=== PATIENT | female | born 1955 | race Caucasian/White ===

== ENCOUNTER 2018-09-02 18:14 | Observation (INO) | payer MEDICARE ==
[~2018-09-02] VITALS: Ht 157.5 cm; Wt 60.0 kg
[2018-09-02] MEDS ORDERED: CORDARONE200 MG/TAB PO (18:52)
[2018-09-02] MEDS ORDERED: LASIX 20MG TABL20 MG (18:53)
[2018-09-02] MEDS ORDERED: COREG 25MG25 MG/TAB PO (18:53)
[2018-09-02] MEDS ORDERED: PAXIL 10MG10 MG PO (18:53)
[2018-09-02] MEDS ORDERED: AMBIEN 10MG10 MG PO (18:54)
[2018-09-02] MEDS ORDERED: LIPITOR 40MG TA40 MG PO (18:54)
[2018-09-02 19:17] LABS: INR 1.2 (0.8-3.0); PROTHROMBIN TIME 13.8 SECONDS (9.7-12.8)
[2018-09-02 19:19] VITALS: BP 138/83; PULSE 80; TEMP 98.2
[2018-09-02 19:25] LABS: ALANINE AMINOTRANSFERASE 64 U/L (9-52); ALBUMIN 3.6 gm/dL (3.5-5.0); ALKALINE PHOSPHATASE 103 U/L (50-136); ANION GAP 4 mmol/L (7-16); AST,SGOT 62 U/L (15-37); BILIRUBIN,TOTAL 0.5 mg/dL (0.0-1.0); BLOOD UREA NITROGEN 14 mg/dL (7-17); CARBON DIOXIDE 29 mmol/L (22-30); CHLORIDE 107 mmol/L (98-107); CREATININE, serum 0.78 mg/dL (0.52-1.25); GLUCOSE 94 mg/dL (74-106); MAGNESIUM 1.8 mg/dL (1.6-2.3); PHOSPHOROUS 2.4 mg/dL (2.5-4.5); POTASSIUM 3.7 mmol/L (3.4-5.0); SODIUM 139 mmol/L (137-145); TOTAL PROTEIN 6.6 gm/dL (6.4-8.2)
[2018-09-02 19:26] LABS: BASO # 0.1 (0.0-0.2); BASO % 0.8 % (0.0-2.0); EOS # 0.1 (0.0-0.7); GRAN # 5.5 (1.4-6.5); GRAN % 63.1 % (42.2-75.2); HEMOGLOBIN 10.4 g/dl (12.5-16.0); LYMPH # 2.4 (1.2-3.4); LYMPH % 27.4 % (20.0-51.0); MEAN CELL VOLUME 75 fl (80.0-100.0); MEAN CORPUSCULAR HEMOGLOBIN 23 pg (27.0-31.0); MEAN CORPUSCULAR HGB CONC 31 g/dl (33.0-37.0); MEAN PLATELET VOLUME 9.2 fl (7.4-10.4); MONO # 0.7 (0.1-0.6); MONO % 7.5 % (1.7-9.3); PLATELET COUNT 513 K/mm3 (130-400); REDCELL DISTRIBUTION WIDTH-CV 21.2 % (11.5-14.5)
[2018-09-02 19:28] LABS: HEMATOCRIT 33.8 % (37.0-47.0)
[2018-09-02 19:40] LABS: TROPONIN-I < 0.012 ng/mL (0.000-0.034)
[2018-09-02 19:52] LABS: IRON,SERUM < 10 ug/dL (35-150)
[2018-09-02 20:01] LABS: TOTAL IRON BINDING CAPACITY 478 ug/dL (265-497)
[2018-09-02 20:28] LABS: FERRITIN 18 ng/mL (11-264)
[2018-09-03 00:23] VITALS: BP 133/68; PULSE 70; TEMP 98.2
[2018-09-03 06:15] LABS: BASO # 0.1 (0.0-0.2); BASO % 1.2 % (0.0-2.0); EOS # 0.2 (0.0-0.7); EOS % 2.2 % (0-4.0); GRAN # 3.6 (1.4-6.5); GRAN % 51.4 % (42.2-75.2); LYMPH # 2.5 (1.2-3.4); LYMPH % 35.4 % (20.0-51.0); MEAN CELL VOLUME 78 fl (80.0-100.0); MEAN CORPUSCULAR HGB CONC 30 g/dl (33.0-37.0); MEAN PLATELET VOLUME 9.3 fl (7.4-10.4); MONO # 0.7 (0.1-0.6); MONO % 9.7 % (1.7-9.3); PLATELET COUNT 461 K/mm3 (130-400)
[2018-09-03 06:17] LABS: HEMOGLOBIN 9.2 g/dl (12.5-16.0); MEAN CORPUSCULAR HEMOGLOBIN 23 pg (27.0-31.0)
[2018-09-03 06:29] LABS: CALCIUM 7.7 mg/dL (8.4-10.2); CHOLESTEROL RISK RATIO 4.2; CREATININE, serum 0.68 mg/dL (0.52-1.25); PHOSPHOROUS 3.2 mg/dL (2.5-4.5); POTASSIUM 3.6 mmol/L (3.4-5.0)
[2018-09-03 07:41] VITALS: BP 135/76; PULSE 73; TEMP 98.2
[2018-09-03 11:17] VITALS: BP 143/88; PULSE 65; TEMP 97.6
[2018-09-03] MEDS ORDERED: ASPIRIN E.C. 8181 MG PO (12:27)
[2018-09-03] MEDS ORDERED: COZAAR 25MG25 MG/TAB PO (12:27)
[2018-09-03] MEDS ORDERED: LASIX 20MG TABL20 MG PO (12:28)
[2018-09-03] MEDS ORDERED: K-DUR 10 MEQ T10 MEQ PO (12:37)
== END 2018-09-03 16:02 | disposition home or self-care (01) ==
LOC: MEDICAL 18:14
PROVIDERS: Nurse Practitioner Family
DX: I11.0 Hypertensive heart disease with heart failure (principal); I50.21 Acute systolic (congestive) heart failure; Z66 Do not resuscitate; I27.20 Pulmonary hypertension, unspecified; K51.90 Ulcerative colitis, unspecified, without complications; D64.9 Anemia, unspecified; I48.91 Unspecified atrial fibrillation; G47.33 Obstructive sleep apnea (adult) (pediatric); I08.1 Rheumatic disorders of both mitral and tricuspid valves; E78.5 Hyperlipidemia, unspecified; Z79.899 Other long term (current) drug therapy; F32.9 Major depressive disorder, single episode, unspecified; E87.6 Hypokalemia; E83.39 Other disorders of phosphorus metabolism; Z91.19 Patient's noncompliance with other medical treatment and regimen
CPT/HCPCS: J1650; J1940; J7040